=== PATIENT | female | born 1960 | race Caucasian/White ===

== ENCOUNTER 2020-03-18 11:38 | Observation (INO) ==
[2020-03-18] MEDS ORDERED: BENADRYL INJ 50 MG VIAL IVP PRN (13:36)
[2020-03-18] MEDS ORDERED: ATIVAN TAB 0.5 MG PO PRN (14:07)
[2020-03-18 14:38] LABS: ALANINE AMINOTRANSFERASE 44 Units/L (12-78); ALKALINE PHOSPHATASE 57 Units/L (46-116); ASPARTATE AMINO TRANSFERASE 34 Units/L (15-37); BLOOD UREA NITROGEN 13 mg/dL (7-18); CALCIUM 9.8 mg/dL (8.5-10.1); CARBON DIOXIDE 27.9 mmol/L (21-32); CHLORIDE 103 mmol/L (98-107); CREATININE 0.91 mg/dL (0.55-1.02); SODIUM 141 mmol/L (136-145); TOTAL PROTEIN 7.9 g/dL (6.4-8.2); eGFR NON BLACK RACES > 60 (>60)
[2020-03-18 14:46] LABS: BASOPHILS # (AUTO) 0.1 X10^3/uL (0.0-0.1); BASOPHILS % (AUTO) 1.1 % (0.2-1.0); EOSINOPHILS % (AUTO) 0.1 % (0.9-2.9); HEMATOCRIT 41.5 % (36.0-47.0); HEMOGLOBIN 13.8 g/dL (12.0-16.0); LYMPHOCYTES # (AUTO) 0.4 X10^3/uL (1.3-2.9); LYMPHOCYTES % (AUTO) 7.5 % (21.0-51.0); MEAN CORPUSCULAR HEMOGLOBIN 31.3 pg (27.0-34.0); MEAN CORPUSCULAR HGB CONC 33.2 g/dL (33.0-35.0); MEAN CORPUSCULAR VOLUME 94.3 fL (80.0-100.0); MEAN PLATELET VOLUME 9.7 fL (7.4-11.0); MONOCYTES # (AUTO) 0.2 x10^3/uL (0.3-0.8); MONOCYTES % (AUTO) 3.4 % (0.0-13.0); NEUTROPHILS # (AUTO) 4.4 x10^3/uL (2.2-4.8); NEUTROPHILS % (AUTO) 87.9 % (42.0-75.0); PLATELET COUNT 222 X10^3/uL (150.0-450.0); RED CELL DISTRIBUTION WIDTH 12.3 % (11.6-16.5); WHITE BLOOD COUNT 5.1 X10^3/uL (3.6-10.0)
[2020-03-18] MEDS: SOLU-Medrol 40 MG VIAL IVP SCH ×2 (14:58→21:05)
[2020-03-18] MEDS: SINGULAIR TAB 10 MG PO SCH (14:58)
[2020-03-18 14:59] LABS: ERYTHROCYTE SEDIMENTATION RATE 38 MM/HOUR (0-20)
[2020-03-18] MEDS: TEMOVATE CREAM EXT SCH ×2 (14:59→21:05)
[2020-03-18] MEDS: NS 1000 ML 1,000 ML IV SCH (14:59)
[2020-03-18] MEDS: DERMOPLAST PAIN RELIEF SPRAY TOP PRN ×2 (15:00→21:06)
[2020-03-18 15:30] VITALS: BMI 18.5
--- NOTE | 2020-03-18 16:53 | RAD ---
HISTORYCOVID, ALLERGIC REACTIONSTUDYCHEST, 1 VIEWCOMPARISONNoneFINDINGSThe trachea is midline. The cardiac silhouette is unremarkable . The lungs are clear without focal infiltrate or effusion. The bony thorax is unremarkable. Surgical clips overlying the chest.IMPRESSIONNo acute cardiopulmonary disease.Electronically signed by: MELODY MCELROY (Mar 18, 2020 16:51:56)
[2020-03-18] MEDS: BENADRYL INJ 50 MG VIAL IVP PRN (20:31)
[2020-03-19] MEDS: NS 1000 ML 1,000 ML IV SCH ×2 (04:51→17:00)
[2020-03-19] MEDS: TEMOVATE CREAM EXT SCH ×3 (05:19→21:04)
[2020-03-19] MEDS: SOLU-Medrol 40 MG VIAL IVP SCH ×3 (05:19→21:04)
[2020-03-19] MEDS: DERMOPLAST PAIN RELIEF SPRAY TOP PRN (05:19)
[2020-03-19 05:36] LABS: BASOPHILS % (AUTO) 0.3 % (0.2-1.0); HEMATOCRIT 37.3 % (36.0-47.0); HEMOGLOBIN 12.5 g/dL (12.0-16.0); LYMPHOCYTES # (AUTO) 0.8 X10^3/uL (1.3-2.9); MEAN CORPUSCULAR HEMOGLOBIN 31.5 pg (27.0-34.0); MEAN CORPUSCULAR HGB CONC 33.5 g/dL (33.0-35.0); MEAN CORPUSCULAR VOLUME 93.9 fL (80.0-100.0); MEAN PLATELET VOLUME 8.8 fL (7.4-11.0); MONOCYTES # (AUTO) 0.1 x10^3/uL (0.3-0.8); MONOCYTES % (AUTO) 1.4 % (0.0-13.0); NEUTROPHILS # (AUTO) 5.2 x10^3/uL (2.2-4.8); NEUTROPHILS % (AUTO) 85.3 % (42.0-75.0); PLATELET COUNT 217 X10^3/uL (150.0-450.0); RED BLOOD COUNT 3.97 X10^6/uL (3.5-5.4); RED CELL DISTRIBUTION WIDTH 11.7 % (11.6-16.5); WHITE BLOOD COUNT 6.1 X10^3/uL (3.6-10.0)
[2020-03-19 05:38] LABS: ALANINE AMINOTRANSFERASE 37 Units/L (12-78); ALBUMIN 3.6 g/dL (3.4-5.0); ALKALINE PHOSPHATASE 52 Units/L (46-116); ASPARTATE AMINO TRANSFERASE 27 Units/L (15-37); BLOOD UREA NITROGEN 13 mg/dL (7-18); CALCIUM 9.5 mg/dL (8.5-10.1); CARBON DIOXIDE 28.1 mmol/L (21-32); CHLORIDE 106 mmol/L (98-107); COR NA(FOR HYPERGLY) 144 mmol/L (136-145); CREATININE 0.96 mg/dL (0.55-1.02); SODIUM 143 mmol/L (136-145); TOTAL PROTEIN 7.4 g/dL (6.4-8.2); eGFR NON BLACK RACES > 60 (>60)
--- NOTE | 2020-03-19 06:05 | RAD ---
CHEST, 1 VIEWHISTORY: COVID-19Study: Single view of the chest.Comparison:March 18, 2020Findings:The cardiomediastinal silhouette is normal.No focal consolidations, pleural effusions or pneumothorax. Osseous structures demonstrate no acute abnormality.IMPRESSION:1. No acute cardiopulmonary process.Electronically signed by: CARMEN GREGORIO (Mar 19, 2020 06:05:15)
[2020-03-19 06:24] LABS: ERYTHROCYTE SEDIMENTATION RATE 24 MM/HOUR (0-20)
[2020-03-19] MEDS: SINGULAIR TAB 10 MG PO SCH (09:01)
[2020-03-19] MEDS ORDERED: ATARAX TAB 25 MG PO ONE (09:20)
[2020-03-19] MEDS: ATARAX TAB 25 MG PO ONE ×2 (09:31→10:17)
[2020-03-19] MEDS: BENADRYL INJ 50 MG VIAL IVP PRN ×2 (15:30→23:34)
[2020-03-19] MEDS ORDERED: TYLENOL 325 MG TAB PO ONE (20:19)
[2020-03-19] MEDS: TYLENOL 325 MG TAB PO PRN (20:37)
[2020-03-19] MEDS ORDERED: ATARAX TAB 25 MG PO SCH (21:00)
[2020-03-20] MEDS: DERMOPLAST PAIN RELIEF SPRAY TOP PRN ×2 (03:10→21:23)
[2020-03-20] MEDS: TYLENOL 325 MG TAB PO PRN ×3 (04:38→23:13)
[2020-03-20 05:24] LABS: BASOPHILS % (AUTO) 0.3 % (0.2-1.0); HEMATOCRIT 34.7 % (36.0-47.0); HEMOGLOBIN 11.6 g/dL (12.0-16.0); LYMPHOCYTES # (AUTO) 0.7 X10^3/uL (1.3-2.9); LYMPHOCYTES % (AUTO) 7.7 % (21.0-51.0); MEAN CORPUSCULAR HEMOGLOBIN 31.5 pg (27.0-34.0); MEAN CORPUSCULAR HGB CONC 33.3 g/dL (33.0-35.0); MEAN CORPUSCULAR VOLUME 94.6 fL (80.0-100.0); MEAN PLATELET VOLUME 9.8 fL (7.4-11.0); MONOCYTES # (AUTO) 0.3 x10^3/uL (0.3-0.8); MONOCYTES % (AUTO) 2.9 % (0.0-13.0); NEUTROPHILS # (AUTO) 7.9 x10^3/uL (2.2-4.8); NEUTROPHILS % (AUTO) 89.1 % (42.0-75.0); PLATELET COUNT 182 X10^3/uL (150.0-450.0); RED BLOOD COUNT 3.67 X10^6/uL (3.5-5.4); RED CELL DISTRIBUTION WIDTH 12.5 % (11.6-16.5); WHITE BLOOD COUNT 8.9 X10^3/uL (3.6-10.0)
[2020-03-20 05:42] LABS: ALANINE AMINOTRANSFERASE 72 Units/L (12-78); ALBUMIN 3.3 g/dL (3.4-5.0); ALKALINE PHOSPHATASE 49 Units/L (46-116); ASPARTATE AMINO TRANSFERASE 60 Units/L (15-37); BLOOD UREA NITROGEN 15 mg/dL (7-18); CALCIUM 9.4 mg/dL (8.5-10.1); CARBON DIOXIDE 27.3 mmol/L (21-32); CHLORIDE 109 mmol/L (98-107); COR NA(FOR HYPERGLY) 144 mmol/L (136-145); SODIUM 143 mmol/L (136-145); TOTAL PROTEIN 6.8 g/dL (6.4-8.2); eGFR NON BLACK RACES > 60 (>60)
[2020-03-20] MEDS: TEMOVATE CREAM EXT SCH ×3 (05:43→21:23)
[2020-03-20] MEDS: SOLU-Medrol 40 MG VIAL IVP SCH ×3 (05:44→21:23)
[2020-03-20] MEDS: NS 1000 ML 1,000 ML IV SCH ×2 (05:44→18:19)
[2020-03-20] MEDS: SINGULAIR TAB 10 MG PO SCH (08:46)
[2020-03-20] MEDS: ATARAX TAB 25 MG PO SCH ×2 (11:04→18:19)
--- NOTE | 2020-03-20 21:32 | DR.UPDATE ---
H&P Update History and Physical Update: History and Physical reviewed and patient examined. Changes noted: Yes with the following: IS A 60 YEAR OLD PATIENT OF OURS WHO HAS BEEN RECOVERING FROM COVID- 19. SHE INITIALLY TESTED POSITIVE ON 02/29/20. SHE FINISHED A MEDROL DOSEPACK, AZITHROMYCIN, AND PLAQUENIL REGIMEN ON 03/07/20. SHE BEGAN WITH A RASH ALL OVER THE BODY ON 03/08. SHE HAD MILD IMPROVEMENT AFTER BENADRY FOR 2-3 DAYS, THEN RASH BEGAN TO WORSEN. SHE WAS GIVEN SOLU-MEDROL IM IN THE OFFICE, HOWERVER, SYMPTOMS CONTINUED TO WORSEN. SHE WAS ADMITTED FOR FURTHER EVALUATION AND TREATMENT. ON ARRIVAL TO THE HOSPITAL, VITALS WERE 98.3-66-20-99%-131/60. LABS WERE OBTAINED. SHE IS HEMODYNAMICALLY STABLE. REPEAT COVID SCREEN WAS POSITIVE. A CHEST XRAY WAS OBTAINED AND REVEALED: No acute cardiopulmonary disease. SHE WAS STARTED ON NORMAL SALINE AT 80 ML/HR, SOLU-MEDROL 40MG IV Q8H, TEMOVATE CREAM TID, BENADRYL 25MG IV Q6H PRN, ATARAX 50MG PO Q8H, SINGULAIR 10MG PO DAILY, AND ATIVAN 0.5MG POT ID PRN. OTHERWISE, WE PLAN TO FOLLOW UP WITH AM LABS AND CONTINUE TO MONITOR. Prescription drug monitoring program results: PDMP reviewed and no concerns identified H&P Reviewed: Yes Patient was examined?: Yes
[2020-03-21] MEDS: ATARAX TAB 25 MG PO SCH ×3 (03:25→09:40)
[2020-03-21] MEDS: TYLENOL 325 MG TAB PO PRN (05:30)
[2020-03-21 05:38] LABS: BASOPHILS % (AUTO) 0.2 % (0.2-1.0); HEMATOCRIT 32.4 % (36.0-47.0); HEMOGLOBIN 10.9 g/dL (12.0-16.0); LYMPHOCYTES # (AUTO) 0.7 X10^3/uL (1.3-2.9); LYMPHOCYTES % (AUTO) 9.5 % (21.0-51.0); MEAN CORPUSCULAR HEMOGLOBIN 31.9 pg (27.0-34.0); MEAN CORPUSCULAR HGB CONC 33.7 g/dL (33.0-35.0); MEAN CORPUSCULAR VOLUME 94.8 fL (80.0-100.0); MEAN PLATELET VOLUME 9.7 fL (7.4-11.0); MONOCYTES # (AUTO) 0.3 x10^3/uL (0.3-0.8); MONOCYTES % (AUTO) 3.3 % (0.0-13.0); NEUTROPHILS # (AUTO) 6.6 x10^3/uL (2.2-4.8); PLATELET COUNT 167 X10^3/uL (150.0-450.0); RED BLOOD COUNT 3.41 X10^6/uL (3.5-5.4); RED CELL DISTRIBUTION WIDTH 12.2 % (11.6-16.5); WHITE BLOOD COUNT 7.6 X10^3/uL (3.6-10.0)
[2020-03-21 05:40] LABS: ABG BASE EXCESS 2.3 mmol/L (-2.0-2.0); ABG HCO3 27.3 mmol/L (22-26)
[2020-03-21 05:41] LABS: ALANINE AMINOTRANSFERASE 77 Units/L (12-78); ALBUMIN 3.1 g/dL (3.4-5.0); ALKALINE PHOSPHATASE 41 Units/L (46-116); ASPARTATE AMINO TRANSFERASE 45 Units/L (15-37); BLOOD UREA NITROGEN 10 mg/dL (7-18); CALCIUM 8.9 mg/dL (8.5-10.1); CARBON DIOXIDE 27.2 mmol/L (21-32); CHLORIDE 110 mmol/L (98-107); COR CA(FOR HYPOALB) 9.6 mg/dL (8.5-10.1); COR NA(FOR HYPERGLY) 146 mmol/L (136-145); CREATININE 0.72 mg/dL (0.55-1.02); SODIUM 145 mmol/L (136-145); TOTAL PROTEIN 6.2 g/dL (6.4-8.2); eGFR NON BLACK RACES > 60 (>60)
[2020-03-21] MEDS: NS 1000 ML 1,000 ML IV SCH ×2 (05:52→06:05)
[2020-03-21] MEDS: SOLU-Medrol 40 MG VIAL IVP SCH ×2 (05:52→13:20)
[2020-03-21] MEDS: TEMOVATE CREAM EXT SCH ×2 (05:52→13:19)
--- NOTE | 2020-03-21 06:14 | RAD ---
HISTORYShortness of breathSTUDYChest AP [id number]/2020FINDINGSThe heart is within normal limits in size. The brittany are normal. Surgical clips are present overlying both brittany. The lungs are hyperinflated but free of acute alveolar infiltrates. No pleural effusions are identified. Bony thorax is unremarkable.IMPRESSIONLungs hyperinflated but clearElectronically signed by: MELODY MCELROY (Mar 21, 2020 06:12:25)
[2020-03-21 06:34] LABS: ERYTHROCYTE SEDIMENTATION RATE 13 MM/HOUR (0-20)
[2020-03-21] MEDS: SINGULAIR TAB 10 MG PO SCH (08:54)
[2020-03-21] MEDS ORDERED: LOVENOX INJ 30 MG SYR SC SCH (10:00)
[2020-03-21 12:15] VITALS: BP 127/58
--- NOTE | 2020-03-21 13:07 | US ---
HISTORY:Abdominal pain, feverStudy: Right upper quadrant abdominal ultrasoundComparison: NoneTechnique: Multiple greer scale and color flow Doppler images of the right upper quadrant were obtained.Findings:The liver is normal in echotexture and size. No focal intraparenchymal mass or intrahepatic biliary ductal dilatation is observed. There is hepatopetal flow in the portal vein. No evidence of gallstones. The common bile duct measures 3 mm. No pericholecystic fluid or gallbladder wall thickening. No sonographic Hernandez's sign reported.The right kidney appears normal in size without focal parenchymal mass or nephrolithiasis. The right kidney measures 9.0 x 4.6 x 5 centimeters. No evidence of hydronephrosis. The visualized portions of the pancreas are unremarkable.IMPRESSION:1. No sonographic abnormalities identified.Electronically signed by: LIA ROCK (Mar 21, 2020 13:06:56)
== END 2020-03-21 14:00 | disposition home or self-care (01) ==
LOC: MED/SURG → ICU 16:19
PROVIDERS: ADMIT Internal Medicine; ATTEND Internal Medicine
DX: R06.02 Shortness of breath; U07.1 COVID-19; R79.89 Other specified abnormal findings of blood chemistry; L27.0 Generalized skin eruption due to drugs and medicaments taken internally; R10.84 Generalized abdominal pain; R73.09 Other abnormal glucose; T50.905A Adverse effect of unspecified drugs, medicaments and biological substances, initial encounter